=== PATIENT | male | born 1955 | race Caucasian/White ===

== ENCOUNTER 2022-05-16 07:11 | Inpatient (IN) | payer MEDICARE, MEDICAID ==
[~2022-05-16 07:11] MED LIST: Bupivacaine 0.5% 50 ML MDV ONE
[2022-05-16] MEDS ORDERED: Midazolam 1 MG/ML 2 ML SDV ONE ×2 (07:18→10:57)
[2022-05-16] MEDS ORDERED: fentaNYL 100 MCG/2 ML SDV ONE (07:18)
[2022-05-16] MEDS ORDERED: Propofol 200 MG/20 ML SDV ONE ×2 (07:18→11:17)
[2022-05-16] MEDS ORDERED: Lactated Ringers 1,000 ML IV SCH (07:30)
[2022-05-16] MEDS: Nozin Nasal Sanitizer NASBOTH SCH ×3 (08:27→20:46)
[2022-05-16] MEDS ORDERED: ceFAZolin 2 GM in Premix Bag 1 BAG IV ONE (08:30)
[2022-05-16] MEDS ORDERED: Bupivacaine 0.5% 50 ML MDV INJECT ONE (11:52)
[2022-05-16] MEDS ORDERED: traMADol 50 MG Tab PO PRN (12:21)
[2022-05-16] MEDS ORDERED: Ondansetron 4 MG/2 ML SDV IVPUSH PRN (12:21)
[2022-05-16] MEDS ORDERED: HYDROmorphone 0.5 MG/0.5 ML Syringe IVPUSH PRN (12:21)
[2022-05-16] MEDS ORDERED: oxyCODONE 5 MG Tab PO PRN (12:21)
[2022-05-16] MEDS ORDERED: Ondansetron 4 MG Tab.DIS PO PRN (12:25)
[2022-05-16] MEDS ORDERED: Sodium Chloride 0.9% 1,000 ML IV SCH (12:30)
[2022-05-16] MEDS ORDERED: ceFAZolin 1 GM in Sodium Chloride 0.9% 50 ML IV SCH (12:30)
[2022-05-16] MEDS: Acetaminophen 500 MG Tab PO SCH ×2 (14:49→19:39)
[2022-05-16] MEDS ORDERED: Latanoprost 0.005% Ophth Soln 2.5 ML Bottle EYEBOTH SCH (17:00)
[2022-05-16] MEDS: ceFAZolin 1 GM in Premix Bag 1 BAG IV SCH (17:38)
[2022-05-16] MEDS: Docusate Sodium 100 MG Cap PO SCH (20:37)
[2022-05-16] MEDS: Celecoxib 200 MG Cap PO SCH (20:38)
[2022-05-16] MEDS: Tamsulosin 0.4 MG Cap.ER PO SCH (20:39)
[2022-05-16] MEDS: Latanoprost 0.005% Ophth Soln 2.5 ML Bottle EYEBOTH SCH (20:39)
[2022-05-16] MEDS: atorvaSTATin 20 MG Tab PO SCH (20:42)
[2022-05-16] MEDS ORDERED: Non-Formulary Medication 1 Each (Simvastatin [Zocor] 40 MG Tablet) PO SCH (21:00)
[2022-05-16] MEDS ORDERED: Nozin Nasal Sanitizer NASBOTH SCH (21:00)
[2022-05-16] MEDS: oxyCODONE 5 MG Tab PO PRN (22:24)
[2022-05-17] MEDS: Acetaminophen 500 MG Tab PO SCH ×4 (02:26→19:54)
[2022-05-17] MEDS: ceFAZolin 1 GM in Premix Bag 1 BAG IV SCH ×2 (02:27→10:09)
[2022-05-17] MEDS: oxyCODONE 5 MG Tab PO PRN ×2 (07:15→12:12)
[2022-05-17] MEDS: Pantoprazole 40 MG Tab.CR PO SCH (07:15)
[2022-05-17] MEDS: Celecoxib 200 MG Cap PO SCH ×2 (08:56→21:23)
[2022-05-17] MEDS: Nozin Nasal Sanitizer NASBOTH SCH ×2 (08:56→21:23)
[2022-05-17] MEDS: Fluticasone NASAL Spray 16 GM Bottle NASBOTH SCH (08:57)
[2022-05-17] MEDS: Enoxaparin 30 MG/0.3 ML Syringe SUBCUT SCH (08:57)
[2022-05-17] MEDS: Docusate Sodium 100 MG Cap PO SCH ×2 (08:57→21:23)
[2022-05-17] MEDS: amLODIPine 5 MG Tab PO SCH (08:58)
[2022-05-17] MEDS: Metoprolol Succinate 50 MG Tab.ER PO SCH (08:58)
[2022-05-17] MEDS ORDERED: Non-Formulary Medication 1 Each (Amlodipine Besylate [Amlodipine Besylate] 10 MG Tablet) PO SCH (09:00)
[2022-05-17] MEDS ORDERED: Non-Formulary Medication 1 Each (Metoprolol Succinate [Toprol Xl 100mg] 100 MG Tab.Er) PO SCH (09:00)
[2022-05-17] MEDS ORDERED: Non-Formulary Medication 1 Each (Omeprazole [Omeprazole] 20 MG Capsule.Dr) PO SCH (09:00)
[2022-05-17] MEDS: atorvaSTATin 20 MG Tab PO SCH (21:23)
[2022-05-17] MEDS: Tamsulosin 0.4 MG Cap.ER PO SCH (21:23)
[2022-05-17] MEDS: Latanoprost 0.005% Ophth Soln 2.5 ML Bottle EYEBOTH SCH (21:24)
[2022-05-18] MEDS: Acetaminophen 500 MG Tab PO SCH ×2 (02:16→07:33)
[2022-05-18] MEDS ORDERED: Magnesium Hydroxide 400 MG/5 ML Susp 30 ML Cup PO PRN (03:37)
[2022-05-18] MEDS: Pantoprazole 40 MG Tab.CR PO SCH (07:33)
[2022-05-18] MEDS: Metoprolol Succinate 50 MG Tab.ER PO SCH (08:37)
[2022-05-18] MEDS: Celecoxib 200 MG Cap PO SCH (08:37)
[2022-05-18] MEDS: amLODIPine 5 MG Tab PO SCH (08:40)
[2022-05-18] MEDS: Fluticasone NASAL Spray 16 GM Bottle NASBOTH SCH (08:41)
[2022-05-18] MEDS: Nozin Nasal Sanitizer NASBOTH SCH (08:41)
[2022-05-18] MEDS: Docusate Sodium 100 MG Cap PO SCH (08:41)
[2022-05-18] MEDS: Enoxaparin 30 MG/0.3 ML Syringe SUBCUT SCH (08:42)
[2022-05-18] MEDS: oxyCODONE 5 MG Tab PO PRN (09:50)
== END 2022-05-18 10:15 | DRG 470 ==
LOC: JP.SDS 07:11 → JP.2SS 12:21 → JP.SDS 05-17 08:10
PROVIDERS: ADMIT Specialist; ATTEND Specialist
PROC: 0SRD0J9 Replacement of Left Knee Joint with Synthetic Substitute, Cemented, Open Approach (ICD-10-PCS; principal; 2022-05-16)
DX: M17.12 Unilateral primary osteoarthritis, left knee (principal); E24.9 Cushing's syndrome, unspecified; F31.9 Bipolar disorder, unspecified; M79.7 Fibromyalgia; K21.9 Gastro-esophageal reflux disease without esophagitis; G47.33 Obstructive sleep apnea (adult) (pediatric); I10 Essential (primary) hypertension; R35.0 Frequency of micturition; Z98.890 Other specified postprocedural states; Z79.899 Other long term (current) drug therapy; Z79.82 Long term (current) use of aspirin; Z91.030 Bee allergy status; Z88.8 Allergy status to other drugs, medicaments and biological substances; E78.5 Hyperlipidemia, unspecified; Z20.822 Contact with and (suspected) exposure to COVID-19
CPT/HCPCS: 36415; 73560-26-LT; 73560-LT; 85027; 97110-GP; 97161-GP; 97165-GO; 97530-GP; A9270-GY; C1713; C1776; J0690; J1170; J1650; J2250; J2704; J3010; J3490; J7030; J7120; U0002

== ENCOUNTER 2022-07-04 05:29 | Inpatient (IN) | payer MEDICARE, MEDICAID ==
[2022-07-04] MEDS ORDERED: Nozin Nasal Sanitizer NASBOTH SCH (06:00)
[2022-07-04] MEDS ORDERED: Lactated Ringers 1,000 ML IV SCH (06:00)
[2022-07-04 06:23] LABS: ESTIMATED GFR 60 mL/min (>60)
[2022-07-04] MEDS ORDERED: Bupivacaine 0.5% 30 ML SDV ONE (06:57)
[2022-07-04] MEDS ORDERED: Midazolam 1 MG/ML 2 ML SDV ONE ×3 (07:02→08:14)
[2022-07-04] MEDS ORDERED: Propofol 200 MG/20 ML SDV ONE (07:02)
[2022-07-04] MEDS ORDERED: fentaNYL 100 MCG/2 ML SDV ONE ×2 (07:02→08:14)
[2022-07-04] MEDS ORDERED: ceFAZolin 2 GM in Sodium Chloride 0.9% 50 ML IV ONE (07:30)
[2022-07-04] MEDS ORDERED: Tranexamic Acid 1,000 MG in Sodium Chloride 0.9% 50 ML IV ONE (07:30)
[2022-07-04] MEDS ORDERED: Lactated Ringers 1,000 ML ONE (08:46)
[2022-07-04] MEDS ORDERED: Ondansetron 4 MG/2 ML SDV IVPUSH PRN (09:33)
[2022-07-04] MEDS: oxyCODONE 5 MG Tab PO PRN ×3 (11:01→21:04)
[2022-07-04] MEDS: Acetaminophen 325 MG Tab PO SCH ×3 (11:02→23:56)
[2022-07-04] MEDS: HYDROmorphone 0.5 MG/0.5 ML Syringe IVPUSH PRN ×2 (11:40→16:54)
[2022-07-04] MEDS: ceFAZolin 1 GM in Premix Bag 1 BAG IV SCH ×2 (14:20→21:04)
[2022-07-04] MEDS: Sodium Chloride 0.9% 1,000 ML IV SCH ×2 (15:14→23:48)
[2022-07-04] MEDS: Docusate Sodium 100 MG Cap PO SCH (20:49)
[2022-07-04] MEDS: Nozin Nasal Sanitizer NASBOTH SCH (20:49)
[2022-07-04] MEDS: atorvaSTATin 20 MG Tab PO SCH (20:50)
[2022-07-04] MEDS: Ketorolac 30 MG/ML SDV IVPUSH SCH (20:50)
[2022-07-04] MEDS: Latanoprost 0.005% Ophth Soln 2.5 ML Bottle EYEBOTH SCH (20:51)
[2022-07-04] MEDS: Tamsulosin 0.4 MG Cap.ER PO SCH (20:51)
[2022-07-05] MEDS: Ketorolac 30 MG/ML SDV IVPUSH SCH (04:40)
[2022-07-05] MEDS: Acetaminophen 325 MG Tab PO SCH ×3 (05:31→17:25)
[2022-07-05] MEDS: ceFAZolin 1 GM in Premix Bag 1 BAG IV SCH (05:33)
[2022-07-05] MEDS: Pantoprazole 40 MG Tab.CR PO SCH (07:18)
[2022-07-05] MEDS: oxyCODONE 5 MG Tab PO PRN ×3 (07:21→16:36)
[2022-07-05] MEDS: Nozin Nasal Sanitizer NASBOTH SCH ×2 (08:11→20:23)
[2022-07-05] MEDS: Docusate Sodium 100 MG Cap PO SCH ×2 (08:12→20:27)
[2022-07-05] MEDS: amLODIPine 5 MG Tab PO SCH (08:12)
[2022-07-05] MEDS: Fluticasone NASAL Spray 16 GM Bottle NASBOTH SCH (08:12)
[2022-07-05] MEDS: Enoxaparin 30 MG/0.3 ML Syringe SUBCUT SCH (08:12)
[2022-07-05] MEDS: Metoprolol Succinate 50 MG Tab.ER PO SCH (08:13)
[2022-07-05] MEDS: traMADol 50 MG Tab PO PRN (20:22)
[2022-07-05] MEDS: Tamsulosin 0.4 MG Cap.ER PO SCH (20:25)
[2022-07-05] MEDS: atorvaSTATin 20 MG Tab PO SCH (20:25)
[2022-07-05] MEDS: Latanoprost 0.005% Ophth Soln 2.5 ML Bottle EYEBOTH SCH (20:26)
[2022-07-06] MEDS: traMADol 50 MG Tab PO PRN ×5 (00:43→23:34)
[2022-07-06] MEDS: Acetaminophen 325 MG Tab PO SCH ×5 (00:44→23:35)
[2022-07-06] MEDS: Pantoprazole 40 MG Tab.CR PO SCH (07:43)
[2022-07-06] MEDS: Nozin Nasal Sanitizer NASBOTH SCH ×2 (08:27→20:47)
[2022-07-06] MEDS: Fluticasone NASAL Spray 16 GM Bottle NASBOTH SCH (08:27)
[2022-07-06] MEDS: amLODIPine 5 MG Tab PO SCH (08:27)
[2022-07-06] MEDS: Metoprolol Succinate 50 MG Tab.ER PO SCH (08:28)
[2022-07-06] MEDS: Enoxaparin 30 MG/0.3 ML Syringe SUBCUT SCH (08:28)
[2022-07-06] MEDS: Docusate Sodium 100 MG Cap PO SCH ×2 (08:32→20:49)
[2022-07-06] MEDS ORDERED: Polyethylene Glycol 3350 Powder 17 GM Packet PO PRN (12:50)
[2022-07-06] MEDS: Celecoxib 200 MG Cap PO SCH (20:49)
[2022-07-06] MEDS: atorvaSTATin 20 MG Tab PO SCH (20:50)
[2022-07-06] MEDS: Tamsulosin 0.4 MG Cap.ER PO SCH (20:50)
[2022-07-06] MEDS: Latanoprost 0.005% Ophth Soln 2.5 ML Bottle EYEBOTH SCH (20:51)
[2022-07-07] MEDS: traMADol 50 MG Tab PO PRN ×2 (03:39→10:01)
[2022-07-07] MEDS: Pantoprazole 40 MG Tab.CR PO SCH (06:29)
[2022-07-07] MEDS: Acetaminophen 325 MG Tab PO SCH (06:29)
[2022-07-07] MEDS: Fluticasone NASAL Spray 16 GM Bottle NASBOTH SCH (08:10)
[2022-07-07] MEDS: Enoxaparin 30 MG/0.3 ML Syringe SUBCUT SCH (08:10)
[2022-07-07] MEDS: Celecoxib 200 MG Cap PO SCH (08:10)
[2022-07-07] MEDS: Nozin Nasal Sanitizer NASBOTH SCH (08:10)
[2022-07-07] MEDS: Docusate Sodium 100 MG Cap PO SCH (08:10)
[2022-07-07] MEDS: Metoprolol Succinate 50 MG Tab.ER PO SCH (08:11)
[2022-07-07] MEDS: amLODIPine 5 MG Tab PO SCH (08:11)
== END 2022-07-07 10:25 | disposition home or self-care (01) | DRG 470 ==
LOC: JP.SDS 05:29 → JP.ICU 09:33 → JP.SDS 07-05 08:34
PROVIDERS: ADMIT Specialist; ATTEND Specialist
PROC: 0SRC0J9 Replacement of Right Knee Joint with Synthetic Substitute, Cemented, Open Approach (ICD-10-PCS; principal; 2022-07-04)
DX: M17.11 Unilateral primary osteoarthritis, right knee (principal); N18.30 Chronic kidney disease, stage 3 unspecified; I12.9 Hypertensive chronic kidney disease with stage 1 through stage 4 chronic kidney disease, or unspecified chronic kidney disease; F31.9 Bipolar disorder, unspecified; Z96.652 Presence of left artificial knee joint; Z20.822 Contact with and (suspected) exposure to COVID-19; Z91.030 Bee allergy status; Z88.8 Allergy status to other drugs, medicaments and biological substances
CPT/HCPCS: 36415; 73560-26-RT; 73560-RT; 80053; 85027; 97110-GP; 97116-GP; 97162-GP; 97165-GO; 97530-GP; 97535-GO; 97535-GP; A9270-GY; C1713; C1776; J0690; J1170; J1650; J1885; J2250; J2704; J3010; J3490; J7030; J7120; U0002